=== PATIENT | female | born 1995 | race Caucasian/White ===

== ENCOUNTER 2019-02-06 16:45 | Emergency (ER) | payer SELFPAY ==
[~2019-02-06] VITALS: Ht 162.6 cm; Wt 89.0 kg
[2019-02-06 16:56] VITALS: BP 137/61; PULSE 76; RESP 20; Ht 162.6 cm; Wt 89.0 kg
[2019-02-06] MEDS ORDERED: IBUP-1542 PO (19:31)
--- NOTE | 2019-02-07 00:31 | ERD ---
ER Documentation Chief Complaint Chief Complaint abd pain and nausea and vomiting today HPI 23-year-old female patient with a past medical history of HIV presents ED complaining of abdominal pain that started earlier today. States that her pain is predominantly in the left lower quadrant region. Patient reports that she has had 3 days of nonmucoid nonbloody diarrhea. States that her last menstruation was on January 10, 2019. ROS All systems reviewed and are negative except as per history of present illness. Medications Home Meds Active Scripts Ibuprofen* (Motrin*) 600 Mg Tab, 600 MG PO Q6, #30 TAB Prov:DOV SELLERS Mickie DEAN 02/06/19 PMhx/Soc History of Surgery: No Anesthesia Reaction: No Hx Neurological Disorder: No Hx Respiratory Disorders: No Hx Cardiac Disorders: No Hx Psychiatric Problems: No Hx Miscellaneous Medical Probl: No Hx Alcohol Use: No Hx Substance Use: No Hx Tobacco Use: No Smoking Status: Never smoker FmHx Family History: No diabetes, No coronary disease Physical Exam Vitals Vital Signs Date Temp Pulse Resp B/P (MAP) Pulse Ox O2 O2 Flow FiO2 Time Delivery Rate 02/06/19 97.6 76 20 137/61 99 16:56 (86) Physical Exam Const: Fuf-nxj-nylvnzoly, well-nourished. In no acute distress. Head: Atraumatic, normocephalic Eyes: Normal Conjunctiva without injection. No purulent discharge. ENT: Normal external ear, nose. Moist oropharynx without tonsillar exudates. Non-erythematous pharynx. Uvula midline. No drooling. No trismus. Neck: No cervical midline tenderness. Full range of motion. No meningismus. No cervical lymphadenopathy. No JVD. Resp: Clear to auscultation bilaterally. No wheezing, rhonchi, rales, or crackles. No accessory muscle use. No retractions. Cardio: Regular rate and rhythm. No murmurs, rubs or gallops. Abd: Soft, nontender, non distended. Normal bowel sounds. No palpable masses. No rebound tenderness. No guarding. Negative McBurney's point. Negative psoas sign. Negative obturator sign. : See exam in MDM. Skin: No petechiae or rashes Back: No midline tenderness. No CVA tenderness. Ext: No cyanosis, or edema. Neur: Awake and alert. Normal gait. Normal coordination. Psych: Normal Mood and Affect Result Diagram: 02/06/194 02/06/191823 Results 24 hrs Laboratory Tests Test 02/06/19 18:24 White Blood Count 8.3 10^3/ul Red Blood Count 4.19 10^6/ul Hemoglobin 12.4 g/dl Hematocrit 37.2 % Mean Corpuscular Volume 88.8 fl Mean Corpuscular Hemoglobin 29.6 pg Mean Corpuscular Hemoglobin Concent 33.3 g/dl Red Cell Distribution Width 12.6 % Platelet Count 246 10^3/UL Mean Platelet Volume 11.5 fl Immature Granulocytes % 0.200 % Neutrophils % 53.5 % Lymphocytes % 36.2 % Monocytes % 8.3 % Eosinophils % 1.1 % Basophils % 0.7 % Nucleated Red Blood Cells % 0.0 /100WBC Immature Granulocytes # 0.020 10^3/ul Neutrophils # 4.4 10^3/ul Lymphocytes # 3.0 10^3/ul Monocytes # 0.7 10^3/ul Eosinophils # 0.1 10^3/ul Basophils # 0.1 10^3/ul Nucleated Red Blood Cells # 0.0 10^3/ul Urine Color YELLOW Urine Clarity CLOUDY Urine pH 5.0 Urine Specific [facility] 1.026 Urine Ketones NEGATIVE mg/dL Urine Nitrite NEGATIVE mg/dL Urine Bilirubin NEGATIVE mg/dL Urine Urobilinogen NEGATIVE mg/dL Urine Leukocyte Esterase NEGATIVE Evelin/ul Urine Microscopic RBC 1 /HPF Urine Microscopic WBC 1 /HPF Urine Squamous Epithelial Cells MODERATE /HPF Urine Bacteria FEW /HPF Urine Mucus FEW /HPF Urine Hemoglobin NEGATIVE mg/dL Urine Glucose NEGATIVE mg/dL Urine Total Protein NEGATIVE mg/dl Sodium Level 141 mmol/L Potassium Level 3.6 mmol/L Chloride Level 109 mmol/L Carbon Dioxide Level 20 mmol/L Anion Gap 12 Blood Urea Nitrogen 11 mg/dl Creatinine 0.59 mg/dl Est Glomerular Filtrat Rate mL/min > 60 mL/min Glucose Level 83 mg/dl Calcium Level 9.2 mg/dl Total Bilirubin 0.3 mg/dl Direct Bilirubin 0.00 mg/dl Indirect Bilirubin 0.3 mg/dl Aspartate Amino Transf (AST/SGOT) 20 IU/L Alanine Aminotransferase (ALT/SGPT) 19 IU/L Alkaline Phosphatase 64 IU/L Total Protein 7.4 g/dl Albumin 4.2 g/dl Globulin 3.20 g/dl Albumin/Globulin Ratio 1.31 Lipase 45 U/L Procedures/MDM 23-year-old female patient with a past medical history of HIV presents to ED complaining of left lower quadrant abdominal pain. Patient is afebrile and nontoxic-appearing. Patient was further worked up with CBC, CMP, lipase, UA, pelvic ultrasound. CBC: No leukocytosis. No e/o of systemic infection. No e/o anemia. CMP: No e/o severe acidosis, alkalosis, renal failure, diabetic ketoacidosis, liver disease Lipase within normal limits. Urine: No leukocyte esterase, no nitrites, no hematuria. Urine : Negative IMPRESSION: Left ovarian 1.8 cm cyst. Otherwise unremarkable pelvic ultrasound. Patient has an ovarian cyst. Low suspicion for ectopic , ovarian torsion, gastritis, GERD, peptic ulcer disease, cholecystitis, choledo cholithiasis, cholangitis, pancreatitis, appendicitis, bowel obstruction, ileus, volvulus, nephrolithiasis, pyelonephritis, hepatitis, perforated viscus, diverticulitis, strangulated/incarcerated hernia, DKA, acute abdomen, mesenteric ischemia or other emergent conditions. Diagnosis: Abdominal Pain Discharge medications: Ibuprofen Follow up with primary care physician in 1-2 days. Instructed patient to return to the ED sooner for any worsening symptoms. Patient's questions were answered. Patient is hemodynamically stable. Patient understood and agreed with discharge plan. Patient discharged stable. Disclaimer: Inadvertent spelling and grammatical errors are likely due to EHR/dictation software use and do not reflect on the overall quality of patient care. Also, please note that the electronic time recorded on this note does not necessarily reflect the actual time of the patient encounter. Departure Diagnosis: Primary Impression: Abdominal pain Abdominal location: unspecified location Qualified Codes: R10.9 - Unspecified abdominal pain Condition: Stable Patient Instructions: What Are Ovarian Cysts? Referrals: COMMUNITY CLINICS YOU HAVE RECEIVED A MEDICAL SCREENING EXAM AND THE RESULTS INDICATE THAT YOU DO NOT HAVE A CONDITION THAT REQUIRES URGENT TREATMENT IN THE EMERGENCY DEPARTMENT. FURTHER EVALUATION AND TREATMENT OF YOUR CONDITION CAN WAIT UNTIL YOU ARE SEEN IN YOUR DOCTORS OFFICE WITHIN THE NEXT 1-2 DAYS. IT IS YOUR RESPONSIBILITY TO MAKE AN APPOINTMENT FOR FOLOW-UP CARE. IF YOU HAVE A PRIMARY DOCTOR --you should call your primary doctor and schedule an appointment IF YOU DO NOT HAVE A PRIMARY DOCTOR YOU CAN CALL OUR PHYSICIAN REFERRAL HOTLINE AT IF YOU CAN NOT AFFORD TO SEE A PHYSICIAN YOU CAN CHOSE FROM THE FOLLOWING [facility] CLINICS [facility] [address] [facility] [address] [facility] [address] [facility] [address] [facility] [address] [facility]. [facility] [address] [facility]. [facility] YOU HAVE RECEIVED A MEDICAL SCREENING EXAM AND THE RESULTS INDICATE THAT YOU DO NOT HAVE A CONDITION THAT REQUIRES URGENT TREATMENT IN THE EMERGENCY DEPARTMENT. FURTHER EVALUATION AND TREATMENT OF YOUR CONDITION CAN WAIT UNTIL YOU ARE SEEN IN YOUR DOCTORS OFFICE WITHIN THE NEXT 1-2 DAYS. IT IS YOUR RESPONSIBILITY TO MAKE AN APPOINTMENT FOR FOLOW-UP CARE. IF YOU HAVE A PRIMARY DOCTOR --you should call your primary doctor and schedule and appointment IF YOU DO NOT HAVE A PRIMARY DOCTOR YOU CAN CALL OUR PHYSICIAN REFERRAL HOTLINE AT . IF YOU CAN NOT AFFORD TO SEE A PHYSICIAN YOU CAN CHOSE FROM THE FOLLOWING [facility] INSTITUTIONS: [facility] [address] [place] [address] [facility] [address] [place] [address] [facility] + [facility] [address] [place] [address] [facility] URGENT CARE/SPECIALTIES LOSS PREVENTION CONSULT[place] [address] [facility] [address] [place] [address] OFFICE FAX , JAIME [address] [place] [address] DR. VIVAS, [facility] [address] [place], [place] [id number] DR MCWILLIAMS [facility] [address], [address] [address] DR KC-ADELSO, KAMROOZ [address], [place] [address] [facility] [address] [place] [address] [address] [facility], [facility] [id number] - DR PAN, CARMITA [address], [place] [address] [address] SUNSHINE, TAMIKO [address] [facility], [place] [address] DR MOODY, FARID [address] [place] [address] [facility] Hours: 8:00 am - 5:00 pm Additional Instructions: Llame al doctor MAANA y myriam julianne SOFIA PARA DENTRO DE 2-3 BARBER.Dgale a la secretaria que nosotros le instruimos hacer esta sofia.Avise o llame si lawton condicin se empeora antes de la sofia. Regresa aqui si peor o no mejor. DOV SELLERS PA-C Feb 07, 2019 00:31
== END 2019-02-06 19:37 | disposition home or self-care (01) ==
LOC: FTE 16:45
DX: R10.32 Left lower quadrant pain (principal); Z21 Asymptomatic human immunodeficiency virus [HIV] infection status
CPT/HCPCS: 36415; 76830; 76856; 80053; 81001; 83690; 85025